=== PATIENT | female | born 1945 | race Caucasian/White ===

== ENCOUNTER 2020-11-17 15:00 | Emergency (ER) | payer MEDICARE, OTHER | END 2020-11-17 17:35 | disposition home or self-care (01) | LOC: ER1 15:00 | DX: S01.01XA Laceration without foreign body of scalp, initial encounter (principal); E03.9 Hypothyroidism, unspecified; Z23 Encounter for immunization; W20.8XXA Other cause of strike by thrown, projected or falling object, initial encounter; Y92.009 Unspecified place in unspecified non-institutional (private) residence as the place of occurrence of the external cause | CPT/HCPCS: 12002; 70450; 90471; 90715; 99283 ==

== ENCOUNTER 2021-01-24 15:13 | Emergency (ER) | payer MEDICARE ==
[2021-01-24] MEDS ORDERED: AUGMENTIN 875-1 EACH PO (15:39)
== END 2021-01-24 15:40 | disposition home or self-care (01) ==
LOC: ER1 15:13
DX: R59.0 Localized enlarged lymph nodes (principal); E78.5 Hyperlipidemia, unspecified; I10 Essential (primary) hypertension
CPT/HCPCS: 99283